=== PATIENT | male | born 1965 | race Two or more races ===

== ENCOUNTER 2021-06-02 06:25 | Inpatient (IN) | payer OTHER ==
[~2021-06-02] VITALS: Ht 193 cm; Wt 108.9 kg
[2021-06-02] MEDS ORDERED: NITROGLYCERIN PACKET 1 GM PACKET ONE ×2 (06:38→11:33)
--- NOTE | 2021-06-02 06:42 | NUR ---
GERA FROM HOME FOR EVALUATION OF MID STERNAL NON RADIATING CP 45 MIN ROLLED HAM LACER. + TINGLING SENSATION ON ALL EXTREMITIES. PT REC'D ASA 162 MG PO AND ONE SPRAY OG NITRO ROLLED HAM LACER BY EMS WITH RELIEF. NO MORE C/O PAIN OR TRIAGE. -SOB. PT WAS PLACED IN BED 11 ER ON MONITOR. HIGH BP WAS RELAYED TO MD. WILL CONT TO MONITOR ,
--- NOTE | 2021-06-02 06:42 | NUR ---
GERA FROM HOME FOR EVALUATION OF MID STERNAL NON RADIATING CP 45 MIN CHILLER HAND. + TINGLING SENSATION ON ALL EXTREMITIES. PT REC'D ASA 162 MG PO AND ONE SPRAY OG NITRO CHILLER HAND BY EMS WITH RELIEF. NO MORE C/O PAIN OR TRIAGE. -SOB. PT WAS PLACED IN BED 11 ER ON MONITOR. HIGH BP WAS RELAYED TO MD. WILL CONT TO MONITOR ,
[2021-06-02] MEDS ORDERED: NITROGLYCERIN PACKET 1 GM PACKET TD ONE (07:00)
[2021-06-02 07:01] LABS: BASOPHILS # (AUTO) 0.1 K/uL (0.0-0.2); BASOPHILS % (AUTO) 1.1 % (0.0-2.0); EOSINOPHILS % (AUTO) 4.9 % (0.0-6.0); HEMATOCRIT 44 % (39-51); HEMOGLOBIN 14.1 g/dL (13.5-17.5); LYMPHOCYTES # (AUTO) 1.8 K/uL (0.8-4.8); MEAN CORPUSCULAR HGB CONC 32 g/dl (31.0-36.0); MEAN CORPUSCULAR VOLUME 86 fL (80-96); MONOCYTES # (AUTO) 0.5 K/uL (0.1-1.30); MONOCYTES % (AUTO) 10.7 % (2.0-12.0); NEUTROPHILS # (AUTO) 2.4 K/uL (1.8-8.9); NEUTROPHILS % (AUTO) 48.3 % (43.0-81.0); PLATELET COUNT (AUTO) 190 K/uL (150-450); RED BLOOD CELL COUNT(AUTO) 5.12 MIL/uL (4.5-6.0)
[2021-06-02 07:41] LABS: CALCIUM, SERUM 9.4 mg/dL (8.5-10.1); CREATININE 1.3 mg/dL (0.6-1.3); POTASSIUM 3.4 mmol/L (3.5-5.1)
[2021-06-02 07:47] LABS: ALBUMIN 3.5 g/dL (3.4-5.0); BILIRUBIN,DIRECT 0.1 mg/dL (0.0-0.2); BILIRUBIN,TOTAL 0.5 mg/dL (0.2-1.0); TOTAL PROTEIN, SERUM 7.7 g/dL (6.4-8.2)
--- NOTE | 2021-06-02 10:03 | NUR ---
CALLED NURSING SUP FOR TELE BED
--- NOTE | 2021-06-02 10:03 | NUR ---
CALLED NURSING SUP FOR TELE BED
[2021-06-02] MEDS ORDERED: MAG HYDROX/AL HYDROX/SIMETH 30 ML UDC PO PRN (11:00)
[2021-06-02] MEDS ORDERED: Z GUARD REMEDY 4 OZ OINT TP PRN (11:00)
[2021-06-02] MEDS ORDERED: ACETAMINOPHEN 325 MG TABLET PO PRN (11:00)
[2021-06-02] MEDS ORDERED: MAGNESIUM HYDROXIDE 30 ML UDC PO PRN (11:00)
[2021-06-02] MEDS ORDERED: NITROGLYCERIN 0.4 MG/TAB BOTTLE SL PRN (11:00)
[2021-06-02] MEDS ORDERED: MORPHINE SULFATE INJ 2 MG/ML DISP.SYRIN IV PRN (11:00)
[2021-06-02] MEDS ORDERED: HYDROCODONE/APAP 5/325MG TABLET PO PRN (11:00)
[2021-06-02] MEDS ORDERED: ONDANSETRON HCL/PF 4 MG/2 ML VIAL IVP PRN (11:00)
[2021-06-02] MEDS ORDERED: ASPIRIN EC 81 MG TABLET.DR PO ONE (11:18)
[2021-06-02] MEDS: ASPIRIN EC 81 MG TABLET.DR PO SCH (11:22)
--- NOTE | 2021-06-02 11:22 | NUR ---
Arlen moss in [facility] - 06/02/21 at 1123 by TC BLOOD SUGAR IS 389.
--- NOTE | 2021-06-02 11:22 | NUR ---
Arlen moss in [facility] - 06/02/21 at 1123 by TC BLOOD SUGAR IS 389.
--- NOTE | 2021-06-02 11:24 | NUR ---
ROOM GIVEN [id number]
--- NOTE | 2021-06-02 11:24 | NUR ---
ROOM GIVEN [id number]
--- NOTE | 2021-06-02 11:31 | NUR ---
REPORT GIVEN TO NURSE KARRIE
--- NOTE | 2021-06-02 11:31 | NUR ---
REPORT GIVEN TO NURSE KARRIE
[2021-06-02] MEDS: NITROGLYCERIN PACKET 1 GM PACKET TOP ONE ×2 (11:38→11:56)
--- NOTE | 2021-06-02 11:38 | NUR ---
MADE DR CARR AWARE OF BLOOD PRESSURE 193/121 AND PULSE 84. NEW ORDER OF NITRO-BID 1 GM TOPICAL OINT ONCE. THE ORDER IS READ BACK, VERIFIED. NOTED AND CARRIED OUT.
--- NOTE | 2021-06-02 12:03 | NUR ---
BLOOD PRESSURE 161/105. DR CARR AWARE WITH NO NEW ORDERS.
--- NOTE | 2021-06-02 12:03 | NUR ---
BLOOD PRESSURE 161/105. DR CARR AWARE WITH NO NEW ORDERS.
--- NOTE | 2021-06-02 12:28 | NUR ---
THE PATIENT IS TRANSFERED TO ASSIGNED ROOM IN STABLE CONDITION AND PER POLICY
--- NOTE | 2021-06-02 12:28 | NUR ---
THE PATIENT IS TRANSFERED TO ASSIGNED ROOM IN STABLE CONDITION AND PER POLICY
--- NOTE | 2021-06-02 12:30 | NUR ---
MUSIC THERAPY SPECIALIST ADMITTING NOTES ADMITTED THIS 55 Y/O MALE PATIENT TO UNIT VIA GURNEY ACCOMPANIED BY ANGELRN FROM ER. PATIENT IS AWAKE, A/O X4, VERBALLY RESPONSIVE, ABLE TO MAKE NEEDS KNOWN. WITH ADMITTING DIAGNOSIS OF ISCHEMIC HEART DISEASE AND ACCELERATED HYPERTENSION. ON ROOM AIR, TOLERATING WELL, NO SOB NOTED, BREATHING EVEN AND UNLABORED. LUNGS CLEAR TO AUSCULTATION BILATERALLY, ABDOMEN SOFT AND NON-TENDER, WITH (+) BOWEL SOUNDS ON ALL QUADRANTS. NO C/O PAIN OR DISCOMFORT AT THIS TIME. NOTED WITH IV ACCESS ON LEFT WRIST #20G, INTACT AND PATENT. PATIENT PLACED ON SENIOR SITE MANAGER WITH CURRENT READING OF NSR, HR @85. SAFETY MEASURES INITIATED, BED LOCKED AND IN LOWEST POSITION, SR UP X2, CALL LIGHT PLACED WITHIN EASY REACH. WILL CONTINUE TO MONITOR.
--- NOTE | 2021-06-02 12:30 | NUR ---
SERVICE DISPATCHER ADMITTING NOTES ADMITTED THIS 55 Y/O MALE PATIENT TO UNIT VIA GURNEY ACCOMPANIED BY ANGELRN FROM ER. PATIENT IS AWAKE, A/O X4, VERBALLY RESPONSIVE, ABLE TO MAKE NEEDS KNOWN. WITH ADMITTING DIAGNOSIS OF ISCHEMIC HEART DISEASE AND ACCELERATED HYPERTENSION. ON ROOM AIR, TOLERATING WELL, NO SOB NOTED, BREATHING EVEN AND UNLABORED. LUNGS CLEAR TO AUSCULTATION BILATERALLY, ABDOMEN SOFT AND NON-TENDER, WITH (+) BOWEL SOUNDS ON ALL QUADRANTS. NO C/O PAIN OR DISCOMFORT AT THIS TIME. NOTED WITH IV ACCESS ON LEFT WRIST #20G, INTACT AND PATENT. PATIENT PLACED ON MATCHING MACHINE OPERATOR WITH CURRENT READING OF NSR, HR @85. SAFETY MEASURES INITIATED, BED LOCKED AND IN LOWEST POSITION, SR UP X2, CALL LIGHT PLACED WITHIN EASY REACH. WILL CONTINUE TO MONITOR.
[2021-06-02] MEDS: ATORVASTATIN 10 MG TABLET PO SCH (13:51)
[2021-06-02] MEDS ORDERED: IOHEXOL-350 100 ML VIAL IV ONE (13:52)
[2021-06-02] MEDS ORDERED: IV NS 0.9% 250 ML IV ONE (13:53)
[2021-06-02] MEDS ORDERED: CT SWABBABLE VALVE TRANS SET 1 EA INFUS.SET MC ONE (13:53)
[2021-06-02] MEDS ORDERED: METOPROLOL TARTRATE INJ 5 MG/5 ML AMPUL ONE ×2 (13:53→14:17)
--- NOTE | 2021-06-02 13:54 | NUR ---
RN NOTES PATIENT PICKED-UP FOR CT ANGIOGRAM HEART, IN STABLE CONDITION.
--- NOTE | 2021-06-02 13:54 | NUR ---
RN NOTES PATIENT PICKED-UP FOR CT ANGIOGRAM HEART, IN STABLE CONDITION.
[2021-06-02] MEDS ORDERED: NITROGLYCERIN 0.4 MG/TAB BOTTLE SL ONE (14:00)
[2021-06-02] MEDS: METOPROLOL TARTRATE INJ 5 MG/5 ML AMPUL IVP PRN ×2 (14:25→14:30)
--- NOTE | 2021-06-02 14:43 | NUR ---
RN NOTES PATIENT BACK FROM CT ANGIOGRAM, IN STABLE CONDITION.
--- NOTE | 2021-06-02 14:43 | NUR ---
RN NOTES PATIENT BACK FROM CT ANGIOGRAM, IN STABLE CONDITION.
[2021-06-02 16:00] VITALS: BP 159/88
[2021-06-02 16:16] LABS: THYROID STIMULATING HORMONE 0.804 uIU/mL (0.358-3.74)
[2021-06-02] MEDS: METOPROLOL TARTRATE 50 MG TABLET PO SCH (17:34)
--- NOTE | 2021-06-02 18:53 | NUR ---
ARTIST SUSPECT CLOSING NOTES PATIENT ON BED AWAKE, A/O X4. NO SIGNS OF ACUTE DISTRESS NOTED. REMAINS ON ROOM AIR TOLERATING WELL, NO SOB, BREATHING EVEN AND UNLABORED. WITH IV ACCESS ON RAC #18G, INTACT AND PATENT, SL. ON PARK RANGER WITH CURRENT READING ON NSR WITH HR @72. NO C/O CHEST PAIN OR DISCOMFORT. ALL DUE MEDS GIVEN. SAFETY MEASURES IN PLACE. BED LOCKED AND IN LOWEST POSITION, SR UP X2, CALL LIGHT PLACED WITHIN EASY REACH. WILL ENDORSE TO NEXT SHIFT.
--- NOTE | 2021-06-02 18:53 | NUR ---
MEDICAL RECORDS TECHNICIAN CLOSING NOTES PATIENT ON BED AWAKE, A/O X4. NO SIGNS OF ACUTE DISTRESS NOTED. REMAINS ON ROOM AIR TOLERATING WELL, NO SOB, BREATHING EVEN AND UNLABORED. WITH IV ACCESS ON RAC #18G, INTACT AND PATENT, SL. ON MEDICAL IMAGING TECH WITH CURRENT READING ON NSR WITH HR @72. NO C/O CHEST PAIN OR DISCOMFORT. ALL DUE MEDS GIVEN. SAFETY MEASURES IN PLACE. BED LOCKED AND IN LOWEST POSITION, SR UP X2, CALL LIGHT PLACED WITHIN EASY REACH. WILL ENDORSE TO NEXT SHIFT.
--- NOTE | 2021-06-02 19:40 | NUR ---
TELERN PATIENT OUT OF BED ON A CHAIR, WATCHING TV. NO SOB RA 99%. DENIES ANY TYPE OF DISCOMFORTS. STATED WILL CALL FOR ANY FURTHER SYMPTOMS. SAFETY PRECAUTIONS EMPHASIZED, WELL UNDERSTOOD. REVIEWED CALL LIGHT USE. WELL UNDERSTOOD. NO NEEDS AT THIS TIME, CONTINUED MONITORING.
[2021-06-02 20:00] VITALS: BP 132/91
[2021-06-03] VITALS: BP 137/82
[2021-06-03] MEDS: METOPROLOL TARTRATE 50 MG TABLET PO SCH ×2 (00:14→06:15)
--- NOTE | 2021-06-03 00:25 | NUR ---
TELERN DUE MED ADMINISTERED. DENIES ANY DISCOMFORTS
--- NOTE | 2021-06-03 00:25 | NUR ---
TELERN DUE MED ADMINISTERED. DENIES ANY DISCOMFORTS
--- NOTE | 2021-06-03 06:54 | NUR ---
TELERN VITAL SIGNS STABLE. DUE MED ADMINISTERED. NO COMPALINTS MADE.
--- NOTE | 2021-06-03 06:54 | NUR ---
TELERN VITAL SIGNS STABLE. DUE MED ADMINISTERED. NO COMPALINTS MADE.
[2021-06-03] MEDS ORDERED: PANTOPRAZOLE 40 MG TABLET.DR PO SCH (07:30)
--- NOTE | 2021-06-03 07:30 | NUR ---
PLANNING LEAD OPENING NOTES RECEIVED PATIENT ON BED, AWAKE AND A/O X4. ON ROOM AIR TOLERATING WELL. NO SOB NOTED. NOT IN DISTRESS. ON TELE MONITOR CURRENTLY READING SINUS RHYTHM AT 70BPM. WITH NO COMPLAINTS OF PAIN OR DISCOMFORT AT THIS TIME. WITH IV ACCESS AT RIGHT AC G18 SALINE LOCKED, PATENT AND INTACT. SAFETY MEASURES IN PLACED. CALL LIGHT WITHIN REACH. BED ON LOWEST LOCKED POSITION, SIDE RAILS UP X2. WILL CONTINUE TO MONITOR.
[2021-06-03 07:38] LABS: BASOPHILS % (AUTO) 0.4 % (0.0-2.0); HEMATOCRIT 42 % (39-51); HEMOGLOBIN 13.7 g/dL (13.5-17.5); LYMPHOCYTES % (AUTO) 13.9 % (20.0-44.0); MEAN CORPUSCULAR HGB CONC 33 g/dl (31.0-36.0); MEAN CORPUSCULAR VOLUME 86 fL (80-96); MONOCYTES # (AUTO) 0.7 K/uL (0.1-1.30); NEUTROPHILS # (AUTO) 5.6 K/uL (1.8-8.9); NEUTROPHILS % (AUTO) 74.7 % (43.0-81.0); PLATELET COUNT (AUTO) 193 K/uL (150-450); RED BLOOD CELL COUNT(AUTO) 4.92 MIL/uL (4.5-6.0); WHITE BLOOD COUNT (AUTO) 7.4 K/uL (4.3-11.0)
[2021-06-03 08:00] VITALS: BP 146/93
[2021-06-03 08:23] LABS: CALCIUM, SERUM 8.5 mg/dL (8.5-10.1); CREATININE 1.4 mg/dL (0.6-1.3); MAGNESIUM 2.1 mg/dL (1.8-2.4); PHOSPHORUS 2.5 mg/dL (2.5-4.9); POTASSIUM 3.9 mmol/L (3.5-5.1)
[2021-06-03] MEDS: ATORVASTATIN 10 MG TABLET PO SCH (08:27)
[2021-06-03] MEDS: ASPIRIN EC 81 MG TABLET.DR PO SCH (08:28)
[2021-06-03] MEDS ORDERED: VALSARTAN 80 MG TABLET PO SCH (09:00)
[2021-06-03 10:18] VITALS: BP 146/93
[2021-06-03] MEDS ORDERED: VALS160T2 PO (12:00)
--- NOTE | 2021-06-03 14:40 | NUR ---
MS MEMBER SERVICES COORDINATOR NOTES PATIENT WAS SEEN BY DR. CARR AND ORDERED PATIENT FOR DISCHARGE TO HOME. DISCHARGE INSTRUCTION AND EDUCATION PROVIDED TO PATIENT AND EXPLAINED MEDICATIONS AND PRESCRIPTIONS. PATIENT VERBALIZED UNDERSTANDING. DISCHARGE FORM AND BELONGINGS LIST FORM SIGNED BY PATIENT. ALL BELONGINGS ACCOUNTED FOR. NAME WRIST BAND AND IV LINE REMOVED. ACCOMPANIED PATIENT TO THE [facility] AND WAS PICKED UP BY AND LEFT IN STABLE CONDITION VIA PRIVATE CAR. MD AND CHARGE NURSE ARE AWARE OF THE DISCHARGE.
--- NOTE | 2021-06-03 14:40 | NUR ---
MS COMPUTER HARDWARE DEVELOPER NOTES PATIENT WAS SEEN BY DR. CARR AND ORDERED PATIENT FOR DISCHARGE TO HOME. DISCHARGE INSTRUCTION AND EDUCATION PROVIDED TO PATIENT AND EXPLAINED MEDICATIONS AND PRESCRIPTIONS. PATIENT VERBALIZED UNDERSTANDING. DISCHARGE FORM AND BELONGINGS LIST FORM SIGNED BY PATIENT. ALL BELONGINGS ACCOUNTED FOR. NAME WRIST BAND AND IV LINE REMOVED. ACCOMPANIED PATIENT TO THE [facility] AND WAS PICKED UP BY AND LEFT IN STABLE CONDITION VIA PRIVATE CAR. MD AND CHARGE NURSE ARE AWARE OF THE DISCHARGE.
== END 2021-06-03 14:50 | disposition home or self-care (01) | DRG 303 ==
LOC: ER 06:28 → TELE 11:59 → MED 06-03 11:54
DX: I25.10 Atherosclerotic heart disease of native coronary artery without angina pectoris (principal); I16.1 Hypertensive emergency; E87.6 Hypokalemia; I10 Essential (primary) hypertension; Z95.5 Presence of coronary angioplasty implant and graft; Z96.652 Presence of left artificial knee joint
CPT/HCPCS: 36415; 71045-TC; 75574; 80048-TC; 80061-TC; 80076-TC; 83735-TC; 84100-TC; 84439-TC; 84443-TC; 84484-TC; 85025-TC; 87081-TC; 93307-TC; C9803; G0378; J3490; J7050; Q9967